=== PATIENT | female | born 2000 | race Caucasian/White ===

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

== ENCOUNTER → 2019-01-29 | Outpatient (CLI) | payer OTHER | END | disposition home or self-care (01) | LOC: LAB SHORT 14:29 → LAB 14:29 | DX: N34.2 Other urethritis (principal) | CPT/HCPCS: 87086 ==

== ENCOUNTER 2019-02-13 18:05 | Emergency (ER) | payer OTHER ==
[~2019-02-13] VITALS: Ht 170.2 cm; Wt 52.2 kg
[2019-02-13] MEDS ORDERED: Permethrin60 GM TOP (18:33)
== END 2019-02-13 18:40 | disposition home or self-care (01) ==
LOC: ER 18:05
DX: Z20.7 Contact with and (suspected) exposure to pediculosis, acariasis and other infestations (principal); Z88.0 Allergy status to penicillin; Z88.1 Allergy status to other antibiotic agents; Z88.2 Allergy status to sulfonamides; Z88.8 Allergy status to other drugs, medicaments and biological substances; Z79.899 Other long term (current) drug therapy
CPT/HCPCS: 99282

== ENCOUNTER 2019-03-14 19:38 | Emergency (ER) | payer OTHER ==
[~2019-03-14] VITALS: Ht 170.2 cm; Wt 52.2 kg
[~2019-03-14 19:38] MED LIST changes: +Permethrin60 GM TOP
[2019-03-14] MEDS ORDERED: MYCO250 PO (20:41)
== END 2019-03-14 21:57 | disposition home or self-care (01) ==
LOC: ER 19:38
DX: G36.0 Neuromyelitis optica [Devic] (principal); F17.200 Nicotine dependence, unspecified, uncomplicated; Z79.899 Other long term (current) drug therapy
CPT/HCPCS: 36415; 96365; 99283-25; J2930

== ENCOUNTER 2019-03-15 16:02 | Day surgery (SDC) | payer OTHER ==
[~2019-03-15 16:02] MED LIST changes: +MYCO250 PO
--- NOTE | 2019-03-15 17:15 | NUR ---
PT CAME WITH 22G IV FROM ED.
== END 2019-03-15 17:27 | disposition home or self-care (01) ==
LOC: ATC 16:02
DX: G36.0 Neuromyelitis optica [Devic] (principal); F17.200 Nicotine dependence, unspecified, uncomplicated
CPT/HCPCS: J2930

== ENCOUNTER 2019-03-16 14:59 | Day surgery (SDC) | payer OTHER | END 2019-03-16 15:29 | disposition home or self-care (01) | LOC: ATC 14:59 | DX: G36.0 Neuromyelitis optica [Devic] (principal); F17.200 Nicotine dependence, unspecified, uncomplicated | CPT/HCPCS: J2930 ==

== ENCOUNTER → 2019-05-15 | Outpatient (CLI) | payer OTHER ==
[2019-05-16 10:56] LABS: Candida species (DNA Probe) Positive (NEGATIVE); G. vaginalis (DNA Probe) Negative (NEGATIVE); T. vaginalis (DNA Probe) Negative (NEGATIVE)
== END ==
LOC: LAB SHORT 15:29 → LAB 15:29
PROVIDERS: Nurse Practitioner Family
DX: N89.8 Other specified noninflammatory disorders of vagina (principal)
CPT/HCPCS: 87480; 87510; 87660

== ENCOUNTER → 2019-07-29 | Outpatient (CLI) | payer OTHER | END | disposition home or self-care (01) | LOC: LAB SHORT 16:12 → LAB 16:12 | DX: N89.8 Other specified noninflammatory disorders of vagina (principal) | CPT/HCPCS: 87070; 87205 ==

== ENCOUNTER → 2019-08-28 | Outpatient (CLI) | payer OTHER | END | disposition home or self-care (01) | LOC: LAB 09:59 → LAB SHORT 09:59 | DX: N89.8 Other specified noninflammatory disorders of vagina (principal); N64.3 Galactorrhea not associated with childbirth | CPT/HCPCS: 84146; 87070; 87205 ==

== ENCOUNTER 2020-07-01 20:08 | Emergency (ER) | payer OTHER ==
[~2020-07-01] VITALS: Ht 170.2 cm; Wt 56.2 kg
[~2020-07-01 20:08] MED LIST changes: +BIRTHCONTROL
== END 2020-07-01 21:55 | disposition home or self-care (01) ==
LOC: ER 20:08
DX: R21 Rash and other nonspecific skin eruption (principal); Z20.6 Contact with and (suspected) exposure to human immunodeficiency virus [HIV]; F17.210 Nicotine dependence, cigarettes, uncomplicated; Z79.3 Long term (current) use of hormonal contraceptives
CPT/HCPCS: 99283

== ENCOUNTER → 2021-08-25 | Outpatient (CLI) | payer OTHER | LOC: LAB 16:05 → LAB SHORT 16:05 | DX: R31.9 Hematuria, unspecified (principal) | CPT/HCPCS: 87086 ==

== ENCOUNTER 2021-12-22 16:12 | Emergency (ER) | payer OTHER ==
[~2021-12-22] VITALS: Ht 170.2 cm; Wt 64.9 kg
== END 2021-12-22 20:01 | disposition home or self-care (01) ==
LOC: ER 16:12
DX: R51.9 Headache, unspecified (principal); F17.210 Nicotine dependence, cigarettes, uncomplicated
CPT/HCPCS: 96374; 96375; 99283-25; A9270; J1630; J1885

== ENCOUNTER → 2022-03-15 | Outpatient (CLI) | payer OTHER ==
[2022-03-15 13:30] LABS: Stool Occult Bld Immuno 1 Negative (NEGATIVE); Stool Occult Bld Immuno 2 Negative (NEGATIVE); Stool Occult Bld Immuno 3 Negative (NEGATIVE)
== END ==
LOC: LAB SHORT 10:00 → LAB 10:00
PROVIDERS: Nurse Practitioner Family
DX: R19.7 Diarrhea, unspecified (principal)
CPT/HCPCS: G0328

== ENCOUNTER → 2022-03-23 | Outpatient (CLI) | payer OTHER ==
[2022-03-26 03:37] LABS: CHLAMYDIA TRACHOMATIS, NAA Negative (Negative)
== END ==
LOC: LAB SHORT 15:00
PROVIDERS: Nurse Practitioner Family
DX: Z11.3 Encounter for screening for infections with a predominantly sexual mode of transmission (principal)
CPT/HCPCS: 87491; 87591

== ENCOUNTER → 2022-05-22 | Outpatient (CLI) | payer OTHER ==
[2022-05-23 15:25] LABS: Candida species (DNA Probe) Negative (NEGATIVE); G. vaginalis (DNA Probe) Positive (NEGATIVE); T. vaginalis (DNA Probe) Negative (NEGATIVE)
== END | disposition home or self-care (01) ==
LOC: LAB SHORT 09:45
PROVIDERS: Registered Nurse Community Health
DX: Z12.4 Encounter for screening for malignant neoplasm of cervix (principal); N89.8 Other specified noninflammatory disorders of vagina
CPT/HCPCS: 87480; 87510; 87660; G0123

== ENCOUNTER → 2022-07-16 | Outpatient (CLI) | payer OTHER | END | disposition home or self-care (01) | LOC: LAB 12:03 → LAB SHORT 12:03 | DX: B37.31 Acute candidiasis of vulva and vagina (principal) | CPT/HCPCS: 87070; 87147; 87205 ==

== ENCOUNTER 2022-07-27 12:31 | Day surgery (SDC) | payer OTHER ==
[~2022-07-27] VITALS: Ht 170.2 cm; Wt 57.0 kg
--- NOTE | 2022-07-27 14:54 | NUR ---
07/27/22 1454 Kathrine Malave MINERVA AREA PREPPED W/ BETADINE SOLUTION ABDOMINAL AREA PREPPED W/ PURPREP
--- NOTE | 2022-07-27 16:21 | NUR ---
07/27/22 1621 RASHIDA RUBALCAVA PAIN 01/15. IBUPROFEN 800MG GIVEN PO NOW. DID NOT PULL UP ON EMAR.
== END 2022-07-27 16:45 | disposition home or self-care (01) ==
LOC: ORSCSDS 12:31
PROVIDERS: Obstetrics & Gynecology
PROC: 0UB74ZZ Excision of Bilateral Fallopian Tubes, Percutaneous Endoscopic Approach (ICD-10-PCS; principal; 2022-07-27 14:00)
DX: Z30.2 Encounter for sterilization (principal); F41.8 Other specified anxiety disorders
CPT/HCPCS: 88302; A9270; J0171; J1100; J1885; J2405; J2704; J2795; J3010; J7120

== ENCOUNTER → 2022-09-25 | Outpatient (CLI) | payer OTHER ==
[2022-09-26 16:20] LABS: Influenza A, PCR NEGATIVE (NEGATIVE); Influenza B, PCR NEGATIVE (NEGATIVE); Resp Syncytial Virus, PCR NEGATIVE (NEGATIVE); SARS-Cov-2 (COVID-19) PCR, MMC NEGATIVE (NEGATIVE)
== END | disposition home or self-care (01) ==
LOC: LAB SHORT 16:45
PROVIDERS: Physician Assistant
DX: R05.9 Cough, unspecified (principal); R50.9 Fever, unspecified; Z20.822 Contact with and (suspected) exposure to COVID-19
CPT/HCPCS: 0241U

== ENCOUNTER → 2023-07-16 | Outpatient (CLI) | payer OTHER ==
[2023-07-17 10:37] LABS: G. vaginalis (DNA Probe) Positive (NEGATIVE); T. vaginalis (DNA Probe) Negative (NEGATIVE)
[2023-07-17 10:38] LABS: Candida species (DNA Probe) Negative (NEGATIVE)
== END | disposition home or self-care (01) ==
LOC: LAB SHORT 11:30 → LAB 11:30
PROVIDERS: Nurse Practitioner Family
DX: N89.8 Other specified noninflammatory disorders of vagina (principal)
CPT/HCPCS: 87480; 87510; 87660

== ENCOUNTER → 2023-08-24 | Outpatient (CLI) | payer OTHER ==
[2023-08-25 09:39] LABS: Candida species (DNA Probe) Negative (NEGATIVE); G. vaginalis (DNA Probe) Negative (NEGATIVE); T. vaginalis (DNA Probe) Negative (NEGATIVE)
== END ==
LOC: LAB 15:38 → LAB SHORT 15:38
PROVIDERS: Nurse Practitioner Family
DX: N89.8 Other specified noninflammatory disorders of vagina (principal)
CPT/HCPCS: 87480; 87510; 87660

== ENCOUNTER → 2024-02-11 | Outpatient (CLI) | payer OTHER ==
[2024-02-14 10:44] LABS: MYCOPLASMA GENITALIUM BY PCR Not Detected; MYCOPLASMA HOMINIS BY PCR Not Detected; UREAPLASMA MYCOPLASMA SOURCE VAGINA; UREAPLASMA PARVUM BY PCR Detected; UREAPLASMA UREALYTICUM BY PCR Not Detected
== END | disposition home or self-care (01) ==
LOC: LAB SHORT 15:47 → LAB 15:47
PROVIDERS: Physician Assistant
DX: A49.3 Mycoplasma infection, unspecified site (principal)
CPT/HCPCS: 87563; 87798

== ENCOUNTER → 2024-03-13 | Outpatient (CLI) | payer OTHER ==
[2024-03-13 15:54] LABS: Candida Group, PCR NOT DETECTED (NOT DETECT); Candida glabrata-krusei, PCR NOT DETECTED (NOT DETECT)
[2024-03-13 15:55] LABS: Bacterial Vaginosis PCR Positive (NEGATIVE)
== END ==
LOC: LAB SHORT 11:54 → LAB 11:54
PROVIDERS: Nurse Practitioner Family
DX: R82.90 Unspecified abnormal findings in urine (principal)
CPT/HCPCS: 87086; 87481; 87661; 87801

== ENCOUNTER → 2024-04-03 | Outpatient (CLI) | payer OTHER | END | disposition home or self-care (01) | LOC: LAB SHORT 15:47 → LAB 15:47 | DX: N39.0 Urinary tract infection, site not specified (principal) | CPT/HCPCS: 87077; 87086; 87186 ==

== ENCOUNTER → 2024-06-24 | Outpatient (CLI) | payer OTHER | LOC: LAB 16:39 → LAB SHORT 16:39 | PROVIDERS: Nurse Practitioner Obstetrics & Gynecology | DX: N94.10 Unspecified dyspareunia (principal); Z12.4 Encounter for screening for malignant neoplasm of cervix | CPT/HCPCS: 87070; 87205 ==

== ENCOUNTER 2024-09-03 21:10 | Emergency (ER) | payer OTHER ==
[~2024-09-03] VITALS: Ht 170.2 cm; Wt 61.2 kg
[2024-09-03 21:28] VITALS: BP 118/88
== END 2024-09-03 21:35 | disposition home or self-care (01) ==
LOC: ER 21:10
DX: R10.9 Unspecified abdominal pain (principal); Z88.1 Allergy status to other antibiotic agents; Z88.8 Allergy status to other drugs, medicaments and biological substances
CPT/HCPCS: 99282

== ENCOUNTER → 2024-12-31 | Outpatient (CLI) | payer OTHER ==
[~2024-12-31] MED LIST changes: +BENEFIBER; +THERA-D2000 UNIT PO
== END ==
LOC: LAB 16:29 → LAB SHORT 16:29
DX: J02.9 Acute pharyngitis, unspecified (principal)
CPT/HCPCS: 87081

== ENCOUNTER 2025-01-29 07:55 | Day surgery (SDC) | payer OTHER ==
[~2025-01-29] VITALS: Ht 170.2 cm; Wt 62.2 kg
[2025-01-29] MEDS ORDERED: FentaNYL Citrate 50 MCG/ML 2 ML Injection ONE (08:47)
[2025-01-29] MEDS ORDERED: Midazolam HCl 1MG / ML 2ML Vial ONE (08:47)
[2025-01-29] MEDS ORDERED: propofoL 20 ML IV ONE (08:47)
[2025-01-29] MEDS ORDERED: Rocuronium Bromide 10 MG/ML 5ML Injection IV ONE (08:47)
[2025-01-29] MEDS ORDERED: Lactated Ringer's 1,000 ML IV ONE ×2 (08:58→09:17)
[2025-01-29] MEDS ORDERED: Ketorolac Tromethamine 30mg Vial ONE (09:38)
[2025-01-29] MEDS ORDERED: Ondansetron HCl 2 MG / ML 2ML Vial ONE (09:38)
[2025-01-29] MEDS ORDERED: Dexamethasone Sod Phos 10 MG/ML 1ML VIAL ONE (09:38)
[2025-01-29] MEDS ORDERED: Bupivacaine 0.5% W/EPI 1:200000 SDV 30ML INJ ONE (09:39)
--- NOTE | 2025-01-29 09:39 | NUR ---
01/29/25 0939 Kathrine Malave MINERVA AREA PREPPED WITH BETADINE BY TMG. ABDOMINAL AREA PREPPED WITH CLORPREP BY KARLI.
[2025-01-29] MEDS ORDERED: Sugammadex Sodium 200 MG/2ML SDV (100 MG/ML) ONE (09:44)
[2025-01-29 10:42] VITALS: BP 117/69
--- NOTE | 2025-01-29 11:23 | NUR ---
01/29/[address] IN AT PRESENT DISCUSSING SURGERY WITH PT AND BOYFRIEND. OFFICE REP WAS WITH PATIENT DURING DC INSTRUCTIONS. ALL QUESTIONS ANSWERED.
== END 2025-01-29 11:30 | disposition home or self-care (01) ==
LOC: ORSCSDS 07:55
PROVIDERS: Obstetrics & Gynecology
PROC: 0U5F4ZZ Destruction of Cul-de-sac, Percutaneous Endoscopic Approach (ICD-10-PCS; principal; 2025-01-29 09:30)
DX: N80.352 Endometriosis of the left pelvic sidewall, unspecified depth (principal); N80.329 Endometriosis of the posterior cul-de-sac, unspecified depth; N94.10 Unspecified dyspareunia; F31.9 Bipolar disorder, unspecified
CPT/HCPCS: 88305; J1100; J1885; J2250; J2405; J2704; J3010; J7120